=== PATIENT | female | born 1975 | race Two or more races ===

== ENCOUNTER 2025-04-13 02:38 | Emergency (ER) | payer MEDICAID ==
[~2025-04-13] VITALS: Ht 154.9 cm; Wt 100.0 kg
[2025-04-13 02:44] VITALS: BP 202/108; PULSE 88; RESP 14; TEMP 97.7; O2SAT 97
== END 2025-04-13 04:08 | disposition left against medical advice (07) ==
LOC: ER 02:40
DX: R23.8 Other skin changes (principal)
CPT/HCPCS: 99281